=== PATIENT | male | born 1950 | race Hispanic/Latino ===

== ENCOUNTER 2020-01-24 11:00 | Emergency (ER) | payer MEDICARE ==
[~2020-01-24] VITALS: Ht 180.3 cm; Wt 104.8 kg
--- NOTE | 2020-01-24 11:24 | NUR ---
PATIENT YELLING FOR HELP, STATES HE NEEDS TO SIT UP. REINFORCE TO PATIENT TO USE CALL LIGHT THAT HE HAS ACCESS TO ON SIDE OF BED. PATIENT WAS ABLE TO SIT UP ON SIDE OF BED ON HIS OWN.
--- NOTE | 2020-01-24 11:55 | NUR ---
DOPPLER TECH AT BEDSIDE
[2020-01-24] MEDS ORDERED: FENTANYL CITRATE/PF 100MCG/2 ML INJ IV ONE (12:15)
--- NOTE | 2020-01-24 12:50 | Diagnostic Imaging Report ---
Exam: Left shoulder radiographs-2 views History: Pain. Comparison: None. Findings/Impression: No evidence of acute fracture or malalignment. Mild left glenohumeral and acromioclavicular joint degenerative changes. Amorphous calcifications of the greater tuberosity, compatible with rotator cuff tendinopathy. Signed by: Dr. Chanda Jaramillo MD on 01/24/2020 12:47 PM
[2020-01-24] MEDS ORDERED: KETOROLAC TROMETHAMINE 30 MG/ML VIAL IV STA (13:12)
[2020-01-24] MEDS ORDERED: KETOROLAC TROMETHAMINE 30 MG/ML VIAL ONE (13:18)
--- NOTE | 2020-01-24 13:19 | NUR ---
LAB WORK ORDERED PER DR. PITT, DRAWN AND TAKEN TO LAB
[2020-01-24 13:30] LABS: BASOPHILS % 0.1 % (0.0-1.0); EOSINOPHILS % 0.1 % (0.0-6.0); HEMATOCRIT 33.5 % (38.2-49.6); HEMOGLOBIN 11.6 g/dL (14.0-18.0); LYMPHOCYTES # (AUTO) 0.9 (1.0-3.2); LYMPHOCYTES % 7.2 % (18.0-39.1); MEAN CORPUSCULAR HEMOGLOBIN 30.5 pg (28-32); MEAN CORPUSCULAR HGB CONC 34.6 g/dL (31-35); MEAN CORPUSCULAR VOLUME 88.2 fL (81-99); MONOCYTES # (AUTO) 3.4 (0.2-0.8); MONOCYTES % 26.3 % (4.4-11.3); NEUTROPHILS # (AUTO) 8.5 (2.1-6.9); NEUTROPHILS % 65.2 % (38.7-80.0); PLATELET COUNT 141 x10e3/uL (140-360); RED CELL DISTRIBUTION WIDTH 12.2 % (11.7-14.4)
--- NOTE | 2020-01-24 13:37 | NUR ---
DR. PITT AT BEDSIDE EVALUATING PATIENT
[2020-01-24 13:47] LABS: ALANINE AMINOTRANSFERASE 37 IU/L (0-55); ALBUMIN 2.9 g/dL (3.5-5.0); ALBUMIN/GLOBULIN RATIO 0.7 (0.8-2.0); ALKALINE PHOSPHATASE 82 IU/L (40-150); ANION GAP 12.5 mmol/L (8-16); BLOOD UREA NITROGEN 13 mg/dL (7-26); BUN/CREATININE RATIO 16 (6-25); CALCIUM 8.7 mg/dL (8.4-10.2); CARBON DIOXIDE 26 mmol/L (22-29); CHLORIDE 95 mmol/L (98-107); CREATININE, SERUM 0.79 mg/dL (0.72-1.25); EST GLOMERULAR FILTRATION RATE > 60 ML/MIN (60-); GLUCOSE 192 mg/dL (74-118); POTASSIUM 3.5 mmol/L (3.5-5.1); SODIUM 130 mmol/L (136-145)
[2020-01-24 13:54] LABS: LYMPHOCYTES % (MANUAL) 10 % (19-48); METAMYELOCYTES % (MANUAL) 3 % (0-0); MONOCYTES % (MANUAL) 18 % (3.4-9.0); NEUTROPHILS % (MANUAL) 69 % (40-74)
[2020-01-24 13:55] LABS: HYPOCHROMASIA SLIGHT; PLATELET ESTIMATE SLIGHTLY DECREASED; PLATELET MORPHOLOGY COMMENT FEW LARGE; RBC MORPHOLOGY COMMENT NORMAL
--- NOTE | 2020-01-24 14:04 | NUR ---
PATIENT SITTING UP EATING MEAL TRAY
[2020-01-24] MEDS ORDERED: MORPHINE SULFATE 2 MG/ML SYR 1ML IV ONE (14:30)
[2020-01-24] MEDS ORDERED: KETOROLAC TROME10 MG PO (14:53)
== END 2020-01-24 14:58 | disposition home or self-care (01) ==
LOC: ER 11:00
DX: M25.512 Pain in left shoulder (principal); M75.92 Shoulder lesion, unspecified, left shoulder
CPT/HCPCS: 36415; 73030; 80053; 85025; 93971; 99284; J1885; J2270; J3010